=== PATIENT | female | born 1965 | race Caucasian/White ===

== ENCOUNTER 2025-04-02 22:14 | Inpatient (IN) | payer MEDICAID ==
[~2025-04-02] VITALS: Ht 177.8 cm; Wt 83.6 kg
[~2025-04-02 22:14] MED LIST: ARIP5TAB12 PO; ENOX100S3 SQ; EST1T PO; LAMO100T2 PO; NORCO10T PO
--- NOTE | 2025-04-02 22:33 | Physician Documentation ---
History of Present Illness Chief Complaint: Vomiting Stated Complaint: SYNCOPE Time Seen by MD: 22:19 OK to notify your PCP?: Yes Primary Medical Doctor: DR ARCELIA WILLINGHAM Source: patient, family, RN/, RN notes reviewed, old records Mode of Arrival: POV Exam Limitations: no limitations HPI BED 4 This patient is a 60 y/o female BIBEMS to ED for syncope. Patient reportedly was outside talking with her neighbor this evening when she started to have white spots in her vision and felt very lightheaded. Patient sat down, and as she passed out the neighbor guided her to the ground. She was reportedly unconscious for about 30 seconds. No head strike. Not on blood thinners. Patient states that she does have a history of a brain aneurysm, but states that this was many years ago and she has not had issues with passing out before. States this is very unusual for her. Patient denies any history of seizures. No numbness in her hands or feet. When patient was asked she states she did not have a hard or strenuous day. She has been playing music and resting. Patient notes that she did see a warp doffer in December to get cleared for a hip surgery and they did not find anything wrong. Patient when asked does have a slight headache. She did have one drink tonight, but states that this is not unusual for her. Denies heavy drinking but states she typically has one drink in the evening. Patient denies any other associated symptoms at this time. Patient denies any other alleviating or exacerbating factors. Medication Reconciliation Allergies: Coded Allergies: Sulfa (Sulfonamide Antibiotics) (Verified Allergy, Unknown, 04/02/25) Scheduled Estradiol* (Estrace*), 1 MG PO DAILY, (Reported) Lamotrigine* (Lamictal*), 200 MG PO BID, (Reported) Lisinopril (Lisinopril), 2 TAB PO DAILY, (Reported) Discontinued Medications Aripiprazole* (Abilify*), 10 MG PO DAILY, (Reported) Discontinued Reason: patient no longer taking Enoxaparin Sodium* (Lovenox*), 30 MG SQ DAILY, (Reported) Discontinued Reason: patient no longer taking Hydrocodone Bit/Acetaminophen 10/325 MG* ([place] 10/325 MG*), 2 TAB PO Q4H, (Reported) Discontinued Reason: patient no longer taking Past Medical History 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 Skin: Anza, warm and dry with no rashes. HEENT: Head was normocephalic and atraumatic. Eyes - pupils equal, round, reactive to light and accommodation. Extraocular movements were intact. Conjunctivae were nonicteric. The mouth and oropharynx were clear with moist mucous membranes. There were no pharyngeal exudates or erythema. Neck: Supple and nontender. There was no jugular venous distention, lymphadenopathy, thyromegaly or masses. Chest: Clear to auscultation bilaterally without wheezes, rales or rhonchi. No accessory muscle use. No dullness to percussion. Heart: Rate regular and rhythmic. S1, S2. No murmurs. Palpation of the chest wall was normal. No rubs or thrills. Abdomen: Soft, nontender and nondistended. Positive bowel sounds. No guarding or rebound. No hepatosplenomegaly or palpable masses. Extremities: No cyanosis, clubbing or edema. The patient moves all extremities. Pulses were equal and symmetric. Neurologic: Cranial nerves II-XII were intact. Sensation was intact to light touch throughout. Motor strength was 5/5 in all four extremities. Deep tendon reflexes were intact in both upper and lower extremities. Motor Sensory Grossly Intact. Psychologic: The patient was oriented to person, place and time. The patient demonstrated appropriate judgement and insight. Progress Progress Note [id number]: Paged hospitalist [phone]: Case discussed with hospitalist who agrees to evaluate patient for admission. Results/Orders Reviewed/noted all lab results: Yes Results/Orders Orders - CARLOS ALBERTO CARLOS MD Chest,Single View (04/02/25 22:16) Monitor (04/02/25 22:16) Saline Lock (04/02/25 22:16) Oxygen (04/02/25 22:16) Cbc/Diff (04/02/25 22:16) BMP (04/02/25 22:16) PBNP (04/02/25 22:16) Electrocardiogram (04/02/25 22:16) Hs Troponin I W Calculations (04/02/25 22:16) Hs Troponin I W Calculations (04/03/25 00:16) Hs Troponin I W Calculations (04/03/25 01:16) Urinalysis, Cult If Indicated (04/02/25 22:16) Lipase (04/02/25 22:16) Cta Neck/Head (04/02/25 22:29) Vital Signs 04/02/25 22:22 Temp 98.0 Pulse 72 Resp 16 B/P (MAP) 116/79 Pulse Ox 99 Laboratory Tests Test 04/02/25 22:27 CBC Comment Chemistry Comments Re-Evaluation Re-Evaluation : Re-Evaluation: Improved Progress Patient was seen and examined. Patient is given reassurance. Patient had a syncopal episode. Patient's laboratory work was obtained CBC was within normal limits without leukocytosis to suggest infection no anemia. Chemistry was also reassuring with some borderline hypokalemia with a potassium of 3.4 but otherwise within normal limits no prerenal dehydration normal troponins. Patient's urine also showed a specific gravity of 1.025 slightly dry but otherwise within normal limits without infection. Etiologies for the patient's syncope is unclear. There was no prodrome to suggest cardiac arrhythmias no chest pain no shortness of breath there was no vasovagal episode. It is not infectious were volume depletion. Can not rule out cardiac etiologies certainly there was no neurological issues seizures or deficits afterwards. Patient was admitted for syncope workup as well as monitoring the patient for possible cardiac arrhythmias. Discussed case the case with the hospitalist who kindly agreed to admit the patient for further workup and care. 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 Pulse oximetry monitor interpretation shows normal oxygenation 99% room air, normal, my interpretation EKG/XRAY/CT/US/VASC/MRI EKG : Additional Comment [id number]: EDMD Dr. Carlos interpreted the EKG to show normal sinus rhythm at a rate of 66bpm, good R wave progression. QTc of 416ms Chest X-Ray : Interpreted By: both Additional Comments Patient: EFRAIN WAN Medical Record: [id number] [facility] : 1965, Age: 60 Sex: Female Location: ER Patient Status: REG ER Service Date/Time: 04/02/252249 Ordering Physician: CARLOS ALBERTO CARLOS MD Exam: CHEST,SINGLE VIEW CHEST RADIOGRAPH Indication: CP Technique: Single frontal view of the chest was obtained COMPARISON: None FINDINGS: Lines and Tubes: None Lungs: Clear Pleura: No effusion. No pneumothorax. Cardiomediastinal contours: Unremarkable Bones: Unremarkable IMPRESSION: 1. No acute disease. Electronically Signed by:MAXIM COCHRAN MD Date & Time: 04/02/252303 Dictated by: MAXIM COCHRAN MD Dictation date and time: 04/02/252303 Primary Care Provider: NO PRIMARY CARE PROVIDER cc: CARLOS ALBERTO CARLOS MD ~ EDMD DR. CARLOS REVIEWED IMAGES AND AGREES WITH ABOVE FINDINGS. CT : Interpreted By: both CT: Head/Neck With Contrast?: No Impression [place] [id number] CAT SCAN Patient: EFRAIN WAN Medical Record: [id number] [facility] : 1965, Age: 60 Sex: Female Location: ER Patient Status: REG ER Service Date/Time: 04/02/252357 Ordering Physician: CARLOS ALBERTO CARLOS MD Exam: CTA NECK/HEAD INDICATION: syncope with history of ruptured aneurysm and verterbral artery occlusion COMPARISON: None TECHNIQUE:CTA neck and head with intravenous contrast. 3D/MIP image postprocessing was performed and images were used for interpretation and reporting. Radiation Dose Information: CT Dose: CTDI volume is 15.9 mGy. Dose-length product is 626.12 mGy*cm FINDINGS: CTA neck: The visualized thoracic aortic arch and proximal great vessels are unremarkable. The left common, internal and external carotid arteries are within normal limits. The right common, internal and external carotid arteries are within normal limits. The cervical segments of the right and left vertebral arteries are within normal limits. The left vertebral artery is diminutive. The right vertebral artery is dominant. The left vertebral artery terminates as the PICA. The limited visualized lung apices are clear. The surrounding soft tissues and osseous structures are otherwise unremarkable. CTA head: The caliber and course of the distal internal carotid arteries is unremarkable. No evidence of high-grade stenosis or occlusion of the proximal branch vessels of the [place]. No evidence of large aneurysm or arteriovenous malformation. IMPRESSION: 1. No hemodynamically significant stenosis. Electronically Signed by:BECK RUBIO MD Date & Time: 04/03/25138 Dictated by: BECK RUBIO MD Dictation date and time: 04/03/25138 Primary Care Provider: NO PRIMARY CARE PROVIDER cc: CARLOS ALBERTO CARLOS MD ~ EDMD DR. CARLOS REVIEWED IMAGES AND AGREES WITH ABOVE FINDINGS. Medical Decision Making Additional info obtained from: old records Differential Dx:Considerations: Include: Gastritis/PUD, Gastroenteritis, GI hemorrhage, Hernia, Hepatitis, Inflammatory BD, Ischemic bowel, PID, Urinary obstruction, Urinary tract infection, Urolithiasis, Other Departure Time of Disposition: 01:16 Disposition: 09 ADMITTED INPATIENT Admitted to Inpatient Unit: yes, to hospitalist Impression: Primary Impression: Syncope Qualified Codes: R55 - Syncope and collapse Condition: Guarded Referrals: NO PRIMARY CARE PROVIDER (PCP) Education Educated: Patient Educated regarding: diagnosis, need for follow up, other Signature Scribe Signature: Scribed for Carlos Alberto Carlos MD by Iris Le. 04/02/25 22:49 Attestation: The note accurately reflects work and decisions made by me.Carlos Alberto Carlos MD 04/02/25 22:33 CARLOS ALBERTO CARLOS MD Apr 02, 2025 22:33
[2025-04-02 22:37] LABS: MEAN PLATELET VOLUME 7.6 FL (7.4-10.4); RED CELL DISTRIBUTION WIDTH 13.5 % (11.5-14.5)
[2025-04-02 22:58] LABS: CREATININE 0.81 MG/DL (0.40-0.90); PRO BRAIN NATRIURETIC PEPTIDE 78 PG/ML (0-125); TOTAL CARBON DIOXIDE 26.0 MMOL/L (24-32); eCRCL 81 ML/MIN; eGFR 72 ML/MIN
[2025-04-02 23:01] LABS: LEUKOCYTE ESTERASE ,URINE TRACE (Neg); NITRITES, URINE NEGATIVE (Neg); OCCULT BLOOD,URINE NEGATIVE (Neg)
[2025-04-02 23:02] LABS: UA COLLECTION TYPE NON-SPECIFIED
--- NOTE | 2025-04-02 23:07 | RADIOLOGY REPORT ---
CHEST RADIOGRAPH Indication: CP Technique: Single frontal view of the chest was obtained COMPARISON: None FINDINGS: Lines and Tubes: None Lungs: Clear Pleura: No effusion. No pneumothorax. Cardiomediastinal contours: Unremarkable Bones: Unremarkable IMPRESSION: 1. No acute disease.
[2025-04-02 23:10] LABS: HYALINE CASTS 0-3 /LPF (NEGATIVE); MUCUS STRANDS MANY /LPF (Neg); SQUAMOUS EPITHELIAL CELL,UR MODERATE /LPF (FEW)
[2025-04-03] VITALS (7 sets, daily range): BP systolic 118–144; BP diastolic 56–97; PULSE 56–80; RESP 15–18; TEMP 97.2–97.8; O2SAT 96–99
--- NOTE | 2025-04-03 01:42 | RADIOLOGY REPORT ---
INDICATION: syncope with history of ruptured aneurysm and verterbral artery occlusion COMPARISON: None TECHNIQUE:CTA neck and head with intravenous contrast. 3D/MIP image postprocessing was performed and images were used for interpretation and reporting. Radiation Dose Information: CT Dose: CTDI volume is 15.9 mGy. Dose-length product is 626.12 mGy*cm FINDINGS: CTA neck: The visualized thoracic aortic arch and proximal great vessels are unremarkable. The left c ommon, internal and external carotid arteries are within normal limits. The right common, internal an d external carotid arteries are within normal limits. The cervical segments of the right and left [place] tebral arteries are within normal limits. The left vertebral artery is diminutive. The right vertebr al artery is dominant. The left vertebral artery terminates as the PICA. The limited visualized lung apices are clear. The surrounding soft tissues and osseous structures are otherwise unremarkable. CTA head: The caliber and course of the distal internal carotid arteries is unremarkable. No evidence of high-grade stenosis or occlusion of the proximal branch vessels of the [place] of [place]. No evide nce of large aneurysm or arteriovenous malformation. IMPRESSION: 1. No hemodynamically significant stenosis.
[2025-04-03] MEDS ORDERED: LISI5TAB22 PO (01:54)
[2025-04-03] MEDS ORDERED: potassium Cl 40MEQ/1/2NS 520ml 520 ML IV PRN (01:55)
[2025-04-03] MEDS: PERFLUTREN PROTEIN-A MICROSPHR (Optison) 0.22 MG/ML 3ML VIAL IV ONE (01:55)
[2025-04-03] MEDS ORDERED: magnesium sulf-water 2g/50mL 50 ML IV PRN (01:55)
[2025-04-03] MEDS ORDERED: magnesium Cl slow-release 64mg tablet PO PRN (01:55)
[2025-04-03] MEDS ORDERED: mag hydrox/Alum hydrox/simeth 30ml oral suspension PO PRN (01:55)
[2025-04-03] MEDS ORDERED: magnesium sulf-water 4G/100mL 100 ML IV PRN (01:55)
[2025-04-03] MEDS ORDERED: magnesium hydroxide 30ml (MOM) UD suspension PO PRN (01:55)
[2025-04-03] MEDS ORDERED: potassium Cl 20 mEq SR tablet PO PRN (01:55)
--- NOTE | 2025-04-03 02:14 | HISTORY AND PHYSICAL-Residence ---
History & Physical Providers to CC Resident Creating Document: NATALIYA NÚÑEZ, RES ~ History of Present Illness Primary Medical Doctor: DR ARCELIA WILLINGHAM Reason for Admit\Complaint: Syncope History of Present Illness A 60 years old female with PMH of UTI, Ruptured brain aneurysm with 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 She endorsed that she was talking with her neighbor who noticed that she passed out for total around 30 seconds during her conversation. The pt noticed the symptoms of sudden flushing feeling, sweating, feeling hungry and shaky, and slowly bluish black screen before she blacked out and lost total conscious. She was not witnessed with the any jerky seizure like activity, loss of bowel and bladder control functions and bitting tongue during and after she got back from the passing out although she noticed a short moment of confusion with disorientation to the surrounding while she was transferred to the ambulance. She denied any previous coryza symptoms, nausea and vomiting, uncontrolled loose bowel motion and diarrhea before passing out. She denied any FND, fever with chills and rigors, nausea and projectile vomiting, any photophobia, new vision changes, terrible headaches and palpitation, lightheadness and dizziness. SHe noticed that she had an unusual frequency and urgency of urination which made her staying up late nights while denying any Hematuria, and dysuria etc. She denied history of epilepsy. Allergies: Coded Allergies: Sulfa (Sulfonamide Antibiotics) (Verified Allergy, Unknown, 04/02/25) Home Medications Home Medications Active Reported Lisinopril 5 Mg Tablet 2 Tab PO DAILY 30 Days Lovenox* (Enoxaparin Sodium) 100 Mg Syringe 30 Mg SQ DAILY Estrace* (Estradiol) 1 Mg Tablet 1 Mg PO DAILY Abilify* (Aripiprazole) 5 Mg Tablet 10 Mg PO DAILY [place] 10/325 MG* (Acetaminophen/Hydrocodone Bitart) 10 Mg/325 Mg Tablet 2 Tab PO Q4H NOT NEEDED. PT TAKES AROUND THE CLOCK Lamictal* (Lamotrigine) 100 Mg Tablet 200 Mg PO BID Past Medical History Past Medical History -UTI -Ruptured brain aneurysm with no residual neurological deficits - hx of substance abuse Past Surgical History Surgical History Comment s/p left hip arthroplasty with the metal head Past Social History Social History Comment She is currently living herself and having the helpful neighbors Her son is living nearby who frequently visit her house She is currently vaping with nicotine and has a thought to switch to the nicotine patch to quit vaping, she stopped cigarette smoking past few years back. She is still drinking occasional half of hard liquor shots once weekly or biweekly She denied using any current illicit drugs use but quit using years back She goes to the PCP at [facility] Alcohol Use: Occasionally Drug Use: Marijuana ROS All Other Systems: Reviewed and Negative ROS ROS were reviewed WNL except for the above mentioned in HPI Exam Vitals: Vital Signs Date Time Temp Pulse Resp B/P (MAP) Pulse Ox O2 Delivery O2 Flow Rate FiO2 04/03/25 01:50 98.0 71 16 112/61 (78) 98 04/03/25 00:46 0 General: General: Well alert, well oriented, not confused, not agitated, not in acute distress, well cooperated during the physical. HEENT: HEENT: Conjunctive are pink, sclerae clear, no icterus, pupil is equal in both sides, reactive to light, no ear discharge, no pharyngeal erythema or an edema, mouth and lips are slightly dry. Neck: Neck: Supple, no JVD, no lymphadenopathy and thyromegaly. 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: No nystagmus, diplopia, ophthalmoplegia, no peripheral nerve deficits, No focal neurological deficits, no motor and sensory weakness in all 4 extremities, could move all 4 extremities No pronator drift bilaterally, within normal bilateral handgrips power, DTR bilaterally WNL Musculoskeletal: Musculoskeletal: No joint swelling, deformities, inflammations, and no scoliosis and back tenderness Skin: Skin: No active skin lesions and rashes Diagnostic Data Last Recorded Lab Results: 04/02/25222604/02/252226 Counseling Services Smoking & Tobacco Cessation: > 10 Minutes Advance Care Planning Advanced Care plannin - 30 Minutes Additional Plan A 60 years old female with PMH of UTI, Ruptured brain aneurysm with 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 # Syncope -mostly vasovagal Vs simple LUTI -electrolytes and RBS WNL -serial troponin 4-5-4, no abnormal EKG -normal hemoglobin 12.8 -clear chest x-ray -CTA head and neck: No hemodynamically significant stenosis. -UA showed trace positive leukocyte esterase with LUTI symptoms -admit to neurology floor for further workup including 2D Echo and MRI in the am if the pt's metals at the hip is compatible -Started IV ciproflox 400mg QD with culturelle and f/up w/ Urine C&S -neuro monitor and consult with neurology for any changes and possible seizure or further syncope -continuous telemetry at the neuro floor -pending urine drug screen -pending orthostatic hypotension test # Electrolytes imbalance-hypokalemia -replace accordingly -daily recheck # HTN # Hyperglycemia # Hx of brain aneurysm rupture -control blood pressure and continue her home med Lisinopril 10 mg QD and Lamotrigen 200 mg b.i.d. -pending HGB A1c, lipid panel, TSH CODE STATUS: Full code DVT prophylaxis: Sc heparin 5000 units b.i.d. Analgesia/sedation: Tylenol/IV morphine as needed Lines/tubes: PID GI prophylaxis: None Nutrition: Regular with aspiration precaution Prognosis: Guarded Disposition: Continue medical management, F/up pending orthostatic, 2D echo, possible MRI and urine C&S tests, monitor neurology and telemetry, PT eval and DC plan. Resident MD attestation: Patient was seen, examined and discussed with attending MD, Dr. Kathryn NÚÑEZ MD Internal Medicine Resident, PGY3 [facility] Date of Service: Apr 03, 2025 Billing Provider: KARO WADE MD, TIN, RES Apr 03, 2025 02:14 KARO WADE MD Apr 05, 2025 15:34
[2025-04-03] MEDS: normal saline 1000ml 1,000 ML IV SCH (02:24)
[2025-04-03] MEDS: ciprofloxacin lact 400MG/200ML 200 ML IV ONE (03:25)
[2025-04-03] MEDS: ondansetron/PF 4mg/2ml inj IV PRN (03:37)
[2025-04-03] MEDS: lactobacillus rhamnosus 10,000 MMU CELLS/CAPSULE PO SCH (03:38)
[2025-04-03] MEDS: ciprofloxacin lact 400MG/200ML 200 ML IV SCH (03:38)
[2025-04-03] MEDS: potassium Cl 20 mEq SR tablet PO PRN (03:57)
--- NOTE | 2025-04-03 05:51 | ELECTROCARDIOGRAPH REPORT ---
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 Carlos Alberto Bradley Measurements Intervals [place] Rate: 66 P: 7 MA: 147 QRS: 55 QRSD: 107 T: 69 QT: 397 QTc: 416 Interpretive Statements Sinus rhythm Baseline wander in lead(s) V3 Electronically Signed On 04-03-2025 8:40:[address] Carlos Alberto Bradley Please click the below link to view image of tracing.
[2025-04-03 07:14] LABS: CHOL/HDL RATIO 5.6 (0.00-4.99); LDL CHOLESTEROL 136 MG/DL (50-100)
[2025-04-03] MEDS: K and/or MAG REPLACEMENT MC SCH (08:00)
[2025-04-03] MEDS: heparin, porcine 5000 units/ml vial SQ SCH (08:00)
--- NOTE | 2025-04-03 13:22 | RADIOLOGY REPORT ---
PROCEDURE: MR MRI HEAD INDICATION: syncope EXAM DATE: 04/03/2025 12:30 PM COMPARISON: CT CTA NECK/HEAD on DOS: 04/02/25 TECHNIQUE: MRI of the brain without intravenous contrast. FINDINGS: Diffusion weighted images of the brain demonstrate no evidence of acute infarction. There is no evidence of acute intracranial hemorrhage, extra-axial collection, mass effect, midline s hift, herniation or hydrocephalus. The ventricles, sulci and cisterns appear age appropriate. Mild changes of chronic microvascular ischemic disease. There are no signal abnormalities on the susceptibility weighted sequences. The major vascular flow voids are present. The visualized paranasal sinuses and mastoid air cells are clear. The surrounding soft tissues and o sseous structures are unremarkable. IMPRESSION: 1. No evidence of acute infarction, intracranial hemorrhage, mass effect or hydrocephalus. Mild geller es of chronic microvascular ischemic disease. HS:Y
[2025-04-04] VITALS (7 sets, daily range): BP systolic 108–143; BP diastolic 59–87; PULSE 60–80; RESP 16–18; TEMP 97.7–98.2; O2SAT 97–100
[2025-04-04 05:48] LABS: MEAN PLATELET VOLUME 8.5 FL (7.4-10.4); RED CELL DISTRIBUTION WIDTH 13.4 % (11.5-14.5)
[2025-04-04 06:10] LABS: CREATININE 0.68 MG/DL (0.40-0.90); TOTAL CARBON DIOXIDE 27.4 MMOL/L (24-32); eCRCL 96 ML/MIN; eGFR 89 ML/MIN
[2025-04-04 07:44] LABS: EOSINOPHILS % (MANUAL) 5.0 % (0-6); LYMPHOCYTES % (MANUAL) 53.0 % (21-51); MONOCYTES % (MANUAL) 9.0 % (2-12); NEUTROPHILS % (MANUAL) 33.0 % (42-75); PLATELET ESTIMATE NORMAL
[2025-04-04 10:40] LABS: URINE AMPHETAMINE SCREEN NEGATIVE (Neg); URINE BARBITUATE SCREEN NEGATIVE (Neg); URINE BENZODIAZEPINES SCREEN NEGATIVE (Neg); URINE CANNABINOID SCREEN POSITIVE (Neg); URINE COCAINE SCREEN NEGATIVE (Neg); URINE METHADONE SCREEN NEGATIVE (Neg); URINE OPIATE SCREEN NEGATIVE (Neg); URINE PHENCYCLIDINE SCREEN NEGATIVE (Neg)
--- NOTE | 2025-04-04 11:38 | CARDIOLOGY REPORT ---
APPROVED REPORT EXAM: Comprehensive 2D, Doppler, and color-flow Echocardiogram with saline. 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 133.9 cm/s AoV VTI 27.3 cm AO Peak GR. 7.2 mmHg AO Mean GR. 3 mmHg LVOT VTI 28.81 cm LVOT Peak Christ. 125.2 cm/s HANDY(VTI)/BSA 3.49 cm2/m2 HANDY (VTI) 3.49 cm2 Mitral Valve MV E Velocity 78.3 cm/s MV Peak Gr. 3 mmHg MV DECEL TIME 220 ms MV A Velocity 71.3 cm/s MV PHT 68 ms E/A Ratio 1.1 MVA (PHT) 3.24 cm2 MV VMax82.6 cm/s TDI Lateral E' P. V14.83 cm/s E/Lateral E' 5.3 Tricuspid Valve TR P. Velocity 209 cm/s RAP ESTIMATE 10 mmHg TR Peak Gr. 18 mmHg RVSP 28 mmHg Pulmonary Vein S1 Velocity 58.0 cm/s D2 Velocity 51.7 cm/s PVa Gbmndzme06.1 cm/s PVa [id number] msec LEFT VENTRICLE The left ventricle is normal size with mild proximal septal thickening. Overall systolic function is normal. Overall LVEF is 65%. RIGHT VENTRICLE RV is normal size and function. ATRIA The left atrium size is normal. Saline study was performed with 2 IV injections of 10 ccs of agitated normal saline at rest, with cough, and with valsalva. Negative saline study for right to left flow. AORTIC VALVE Trileaflet AV appears mildly sclerotic without stenosis. No insufficiency. MITRAL VALVE Mild mitral annular calcification without stenosis. Trace regurgitation. TRICUSPID VALVE The tricuspid valve is normal in structure with trace regurgitation. PULMONIC VALVE Pulmonic valve is grossly normal in structure with physiologic insufficiency. GREAT VESSELS The aortic root is normal in size. The IVC is normal in size and collapses >50% with inspiration. PERICARDIUM Normal pericardium. No effusion. Other Information Study Quality: Adequate Conclusion Overall LVEF is 65%. The left ventricle is normal size with mild proximal septal thickening. Overall systolic function is normal. RV is normal size and function. Trileaflet AV appears mildly sclerotic without stenosis. No insufficiency. Mild mitral annular calcification without stenosis. Trace regurgitation. The tricuspid valve is normal in structure with trace regurgitation. Normal pericardium. No effusion.
[2025-04-04] MEDS: docusate sod 100mg capsule PO PRN (13:50)
[2025-04-04] MEDS: magnesium hydroxide 30ml (MOM) UD suspension PO ONE (13:56)
--- NOTE | 2025-04-04 18:26 | PROGRESS NOTE- Residence ---
Progress Note - Resident Providers to CC Resident Creating Document: DEDE RUBIO, RES ~ Antibiotic Timeout Antibiotic Ordered?: Yes Subjective The patient was seen and examined at bedside today. She has no new episodes of syncope. She was nauseous this morning, relieved with Zofran. Started her on meclizine PRN for dizziness. EEG pending. Objective Vital Signs Date Time Temp Pulse Resp B/P (MAP) Pulse Ox O2 Delivery O2 Flow Rate FiO2 04/04/25 10:00 98.1 75 16 143/74 (97) 100 Room Air 04/03/25 20:00 0.0 Result Diagram: 04/04/256 04/04/25 0446 Adult female, alert and oriented x4, not in acute distress Head: Normocephalic with an atraumatic Eyes: Pupils- 3mm, reacting to light, conjunctiva- anicteric Nose and throat: No polyps, septum- normal, no mucosal ulcers Neck: Supple, no lymphadenopathy, no carotid bruit Respiratory: No use of accessory muscles of respiration, Bilateral normal vesiscular breath sounds heard. 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 Plan Plan Syncope - possibly vasovagal vs UTI CT head and MRI brain did not show any acute abnormalities. Echocardiogram showed no structural abnormalities. CTA head and neck: No hemodynamically significant stenosis. UA showed trace positive leukocyte esterase with LUTI symptoms. Continuous telemetry at the neuro floor. Orthostatic vitals negative. Meclizine 12.5 mg TID PRN for dizziness. Hypokalemia, resolved -replace accordingly -daily recheck HTN Hx of brain aneurysm rupture Control blood pressure and continue her home med Lisinopril 10 mg QD. CODE STATUS: Full code DVT prophylaxis: Sc heparin 5000 units b.i.d. Analgesia/sedation: Tylenol/IV morphine as needed Lines/tubes: PID Nutrition: Regular with aspiration precaution Prognosis: Guarded Disposition: Continue medical management. EEG pending. Anticipate discharge tomorrow. Dede Rubio MD Internal Medicine Resident, PGY-2 Date of Service: Apr 04, 2025 Billing Provider: HAYDE EASON MD,DEDE ARIAS, RES Apr 04, 2025 18:26
[2025-04-05 06:00] VITALS: BP 136/70; PULSE 66; RESP 18; TEMP 97.6; O2SAT 99
[2025-04-05 06:03] LABS: MEAN PLATELET VOLUME 8.2 FL (7.4-10.4); RED CELL DISTRIBUTION WIDTH 13.8 % (11.5-14.5)
[2025-04-05 06:11] LABS: CREATININE 0.67 MG/DL (0.40-0.90); TOTAL CARBON DIOXIDE 28.0 MMOL/L (24-32); eCRCL 98 ML/MIN; eGFR 90 ML/MIN
[2025-04-05 07:23] VITALS: BP 137/78; PULSE 68
[2025-04-05 08:00] VITALS: BP_SYST 119; BP_SYST 133; BP_SYST 134; BP_DIAS 72; BP_DIAS 73; BP_DIAS 75; PULSE 75; PULSE 79; PULSE 90
[2025-04-05 10:00] VITALS: BP 119/75; PULSE 80; RESP 16; TEMP 97.6; O2SAT 99
[2025-04-05] MEDS ORDERED: ROSU40TA PO (16:49)
[2025-04-05] MEDS ORDERED: MECL-226 PO (16:49)
--- NOTE | 2025-04-05 17:34 | DISCHARGE SUMMARY-Residence ---
Discharge Summary Providers to Resident Creating Document: CHARITO RUBIO, RES ~ Discharge Summary Admission Diagnosis: Syncope Hospital Course DATE OF ADMISSION: 04/03/2025 DATE OF DISCHARGE: 04/05/2025 Imaging: X-ray chest 04/02/2025: No acute disease. Head/neck CTA 04/02/2025: No hemodynamically significant stenosis. Echocardiogram 04/03/2025: Overall LVEF is 65%. The left ventricle is normal size with mild proximal septal thickening. Overall systolic function is normal. RV is normal size and function. Trileaflet AV appears mildly sclerotic without stenosis. No insufficiency. Mild mitral annular calcification without stenosis. Trace regurgitation. The tricuspid valve is normal in structure with trace regurgitation. Normal pericardium. No effusion. MRI head 04/03/2025: No evidence of acute infarction, intracranial hemorrhage, mass effect or hydrocephalus. Mild changes of chronic microvascular ischemic disease. Discharge Diagnosis\Comment: Syncope - possibly vasovagal Hypokalemia, resolved Hypertension Hx of brain aneurysm rupture Operations\Procedures: EEG - awaiting report Consultants: None Complications: None Condition on DC: Stable New Medications: Rosuvastatin Calcium* (Crestor*) 40 Mg Tablet 0.5 TAB PO DAILY for 30 Days, #15 TAB 0 Refills Meclizine HCl (Meclizine HCl) 12.5 Mg Tablet 12.5 MG PO TID PRN for dizziness/vertigo for 30 Days, #30 TAB Continued Medications: Estradiol* (Estrace*) 1 Mg Tablet 1 MG PO DAILY Lamotrigine* (Lamictal*) 100 Mg Tablet 200 MG PO BID Lisinopril (Lisinopril) 5 Mg Tablet 2 TAB PO DAILY for 30 Days, #30 TAB 0 Refills Discharge Summary: History of present illness by admitting physician: A 60 years old female with PMH of UTI, Ruptured brain aneurysm with 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 She endorsed that she was talking with her neighbor who noticed that she passed out for total around 30 seconds during her conversation. The pt noticed the symptoms of sudden flushing feeling, sweating, feeling hungry and shaky, and slowly bluish black screen before she blacked out and lost total conscious. She was not witnessed with the any jerky seizure like activity, loss of bowel and bladder control functions and bitting tongue during and after she got back from the passing out although she noticed a short moment of confusion with disorientation to the surrounding while she was transferred to the ambulance. She denied any previous coryza symptoms, nausea and vomiting, uncontrolled loose bowel motion and diarrhea before passing out. She denied any FND, fever with chills and rigors, nausea and projectile vomiting, any photophobia, new vision changes, terrible headaches and palpitation, lightheadness and dizziness. SHe noticed that she had an unusual frequency and urgency of urination which made her staying up late nights while denying any Hematuria, and dysuria etc. She denied history of epilepsy. Course in the hospital: On evaluation in the ED, the patient's electrolytes and glucose was within normal limits, serial troponins were within normal limits, no changes in EKG. Urine drug screen was negative except for cannabis. Orthostatic blood pressures were negative. CTA head and neck showed no hemodynamically significant stenosis. MRI brain also showed no acute changes, echocardiogram did not show any structural abnormalities. Her initial urinalysis resulted positive for leukocyte esterase and she was started on ciprofloxacin but the final urine cult ures resulted negative. She was monitored on telemetry with for hourly neuro checks. A trial of meclizine 12.5 mg for dizziness was done and the patient found it helpful. Awaiting EEG report. She had no new episodes of syncope during the course of her hospital stay. On the day of discharge, the patient was stable and had no new complaints. She was eager to go home. Advice at discharge: Follow up with PCP in one week. Start taking medication for your cholesterol, crestor 20 mg once daily. Recheck lipid panel after 4-6 weeks. Use meclizine as and when needed for dizziness. Ensure adequate hydration. In the event of similar episode of loss of consciousness happening again, call 911 or go to the ER immediately. Examination at discharge: Adult female, alert and oriented x4, not in acute distress Head: Normocephalic with an atraumatic Eyes: Pupils- 3mm, reacting to light, conjunctiva- anicteric Nose and throat: No polyps, septum- normal, no mucosal ulcers Neck: Supple, no lymphadenopathy, no carotid bruit Respiratory: No use of accessory muscles of respiration, Bilateral normal vesicular breath sounds heard. No wheeze, rhochi or creps Cardiac: S1-S2 heard, rhythm regular, no gallop/murmur Abdomen: non distended, no tenderness, no organomegaly, bowel sounds - heard Extremities: no clubbing, no pedal edema, no deformities, peripheral pulses - 2+ Skin: warm and dry, no rash, no purpura Neuro: No focal deficit, gross cranial nerve exam - normal Vital Signs Date Time Temp Pulse Resp B/P (MAP) Pulse Ox O2 Delivery O2 Flow Rate FiO2 04/05/25 10:00 97.6 80 16 119/75 (90) 99 Room Air 04/05/25 08:00 0.0 Laboratory Tests Test 04/04/25 04:46 04/05/25 05:13 White Blood Count 6.1 X10'3 6.3 X10'3 Red Blood Count 3.92 X10'6 4.28 X10'6 Hemoglobin 11.5 g/dl 12.7 g/dl Hematocrit 34.4 % 37.3 % Mean Corpuscular Volume 87.8 FL 87.2 FL Mean Corpuscular Hemoglobin 29.2 PG 29.7 PG Mean Corpuscular Hemoglobin Concent 33.3 g/dL 34.1 g/dL Red Cell Distribution Width 13.4 % 13.8 % Platelet Count 263 X10'3 309 X10'3 Mean Platelet Volume 8.5 FL 8.2 FL Neutrophils (%) (Auto) 33.9 % 41.0 % Lymphocytes (%) (Auto) 54.2 % 48.1 % Monocytes (%) (Auto) 7.2 % 6.5 % Eosinophils (%) (Auto) 4.5 % 2.9 % Basophils (%) (Auto) 0.2 % 1.5 % Neutrophils # (Auto) 2.1 X10'3 2.6 X10'3 Lymphocytes # (Auto) 3.3 X10'3 3.0 X10'3 Monocytes # (Auto) 0.4 X10'3 0.4 X10'3 Eosinophils # (Auto) 0.3 X10'3 0.2 X10'3 Basophils # (Auto) 0.0 X10'3 0.1 X10'3 CBC Comment Differential Total Cells Counted 100 Neutrophils % (Manual) 33.0 % Lymphocytes % (Manual) 53.0 % Monocytes % (Manual) 9.0 % Eosinophils % (Manual) 5.0 % Platelet Estimate Normal Red Blood Cell Morphology Normal Basophilic Stippling Sodium Level 142 MMOL/L 141 MMOL/L Potassium Level 4.1 MMOL/L 4.0 MMOL/L Chloride Level 108 MMOL/L 107 MMOL/L Carbon Dioxide Level 27.4 MMOL/L 28.0 MMOL/L Anion Gap 7 6 Blood Urea Nitrogen 9 MG/DL 10 MG/DL Creatinine 0.68 MG/DL 0.67 MG/DL Estimated GFR/1.73 m2 89 ML/MIN 90 ML/MIN BUN/Creatinine Ratio 13.2 14.9 Glucose Level 98 MG/DL 94 MG/DL Calcium Level 9.0 MG/DL 9.2 MG/DL Magnesium Level 1.9 MG/DL 1.8 MG/DL Total Bilirubin 0.3 MG/DL 0.4 MG/DL Aspartate Amino Transf (AST/SGOT) 14 U/L 13 U/L Alanine Aminotransferase (ALT/SGPT) 26 U/L 28 U/L Alkaline Phosphatase 58 IU/L 64 IU/L Total Protein 6.3 G/DL 7.0 G/DL Albumin 3.3 G/DL 3.6 G/DL Globulin 3.0 G/DL 3.4 G/DL Albumin/Globulin Ratio 1.1 1.1 Chemistry Comments *Problems/Diagnosis: (1) Syncope Status: Acute Total Time Spent on D/C: > 30 Minutes Date of Service: Apr 05, 2025 Billing Provider: HAYDE EASON MD Problem Qualifiers (1) Syncope: Syncope type: unspecified Qualified Codes: R55 - Syncope and collapse RAMIROCHARITONakul ARIAS, RES Apr 05, 2025 17:34
[2025-04-05] MEDS ORDERED: ciprofloxacin 250mg tablet PO SCH (22:00)
--- NOTE | 2025-04-08 11:39 | [facility] CONSULT REPORT ---
[facility] Procedure Note [facility] Procedure Note Consult [facility] # Demographics Type of EEG Read: - Routine EEG - video Patient Location: Inpatient First Name: EFRAIN Last Name: SAVAGE Date of : 1965 Age: 60 Gender: Female Facility: [facility] Time of Initial Page (): 04/05/2025 15:42 First Contact with Site ( Time): 04/05/2025 15:43 # EEG Interpretation Start Time of EEG Read (): 04/05/2025 15:57 Stop Time of EEG Read (): 04/05/2025 16:18 Duration: 0h 21m Technical Details: - The EEG electrodes were placed using the standard International 10-20 system of electrode placement. Video and an accessory EKG lead were used during the course of this study. - This study was recorded using the [employer] EEG software Indication: Possible seizure # Description Photic Stimulation: NOT Performed Hyperventilation: NOT performed Phases Captured: - awake - drowsy Symmetry: symmetric Posterior Dominant Rhythm: The record is continuous, of normal amplitude and bilaterally symmetrical. There was no clear posterior dominant rhythm captured. There is a moderate amount of diffuse low amplitude 15-25 Hz beta activity and moderate amount of 4-7 Hz theta activity. Occasional <4 Hz delta activity is present. With drowsiness, there is attenuation of the background alpha activity and a shift to slower frequencies. Amplitude: normal Reactivity: unclear Variability: yes Continuity: continuous EKG: artifactual # Abnormalities Epileptiform Abnormalities: - NOT present Focal Slowing: no Seizure: - NOT present # Impression Impression: abnormal 1. Diffuse Slowing # Clinical Correlation Clinical Correlation: 1. Diffuse slowing is non-specific and may be seen in the setting of diffuse cerebral dysfunction; such as toxic/metabolic/infectious encephalopathy or heavily sedating medication use. # Demographics First Name: EFRAIN Last Name: SAVAGE Facility: [facility] LUCRETIA ANDRADE MD Apr 08, 2025 11:39
== END 2025-04-05 17:25 | disposition home or self-care (01) | DRG 425 ==
LOC: ER 22:15 → ED HOLD 04-03 01:18 → ORTHO 4S 04-03 02:15
PROVIDERS: ADMIT Internal Medicine Pulmonary Disease; ATTEND Family Medicine
PROC: B3251ZZ Computerized Tomography (CT Scan) of Bilateral Common Carotid Arteries using Low Osmolar Contrast (ICD-10-PCS; principal; 2025-04-03)
PROC: B32G1ZZ Computerized Tomography (CT Scan) of Bilateral Vertebral Arteries using Low Osmolar Contrast (ICD-10-PCS; 2025-04-03)
PROC: B32R1ZZ Computerized Tomography (CT Scan) of Intracranial Arteries using Low Osmolar Contrast (ICD-10-PCS; 2025-04-03)
PROC: B3281ZZ Computerized Tomography (CT Scan) of Bilateral Internal Carotid Arteries using Low Osmolar Contrast (ICD-10-PCS; 2025-04-03)
PROC: 4A00X4Z Measurement of Central Nervous Electrical Activity, External Approach (ICD-10-PCS; 2025-04-05)
DX: E87.6 Hypokalemia (principal); I10 Essential (primary) hypertension; R55 Syncope and collapse; R73.9 Hyperglycemia, unspecified; Z88.2 Allergy status to sulfonamides; Z90.710 Acquired absence of both cervix and uterus
CPT/HCPCS: 36415; 70496; 70498; 70551; 71045; 80048; 80053; 80061; 80305; 81001; 82948; 83036; 83690; 83735; 83880; 84132; 84443; 84484; 85007; 85025; 87081; 87088; 93005; 93306; 95816; 97116; 97161; 97530; 99285; A6258; A6446; G0378; J0744; J1644; J2405; J7030; J8597; Q9967